=== PATIENT | female | born 1950 | race Two or more races ===

== ENCOUNTER 2016-03-11 18:11 | Emergency (ER) | payer MEDICAID ==
[~2016-03-11] VITALS: Ht 162.6 cm; Wt 99.8 kg
[2016-03-11 18:19] VITALS: BP 147/87
[2016-03-11] MEDS ORDERED: ALBU18HF2 IH (18:25)
[2016-03-11] MEDS ORDERED: LOVA40TA2 PO (18:25)
== END 2016-03-11 21:19 | disposition home or self-care (01) ==
LOC: ER 18:13
DX: S29.011A Strain of muscle and tendon of front wall of thorax, initial encounter (principal); J45.909 Unspecified asthma, uncomplicated; Z90.710 Acquired absence of both cervix and uterus; E78.00 Pure hypercholesterolemia, unspecified; Z88.0 Allergy status to penicillin; Z88.1 Allergy status to other antibiotic agents; W01.0XXA Fall on same level from slipping, tripping and stumbling without subsequent striking against object, initial encounter; Y93.89 Activity, other specified; Y92.89 Other specified places as the place of occurrence of the external cause; Y99.9 Unspecified external cause status
CPT/HCPCS: 71010; 99283; A4606; Z7610

== ENCOUNTER 2020-12-14 14:06 | Emergency (ER) | payer MEDICAID ==
[~2020-12-14] VITALS: Ht 157.5 cm; Wt 107.5 kg
[~2020-12-14 14:06] MED LIST: ALBU18HF2 IH; LOVA40TA2 PO
--- NOTE | 2020-12-14 14:16 | NUR ---
BIB SELF C/O CHEST PAIN AND SOB SINCE 12 NOON TODAY AFTER TAKING 2 CBD GUMMIES. PAIN IS SHARP RATED 8/10 IN MEDIASTINUM, NONRADIATING. PT ADMITS FEELING DIZZY, AGITATION, HEART RACING " IF ABOUT TO STOP," DRY MOUTH, HOT, AND EARS FULL IF GOING TO BURST. PT IS CITIZEN OF [place] SPEAKING, ACCOMPANIED BY DAUGHTER WHO IS TRANSLATING. ON MONITOR. HR 92 BP 150/92
--- NOTE | 2020-12-14 15:39 | NUR ---
RADIOLOGY AT BEDSIDE
[2020-12-14 15:40] LABS: BASOPHILS % (AUTO) 0.7 % (0.0-2.0); EOSINOPHILS % (AUTO) 0.7 % (0.0-6.0); HEMATOCRIT 32 % (33-45); HEMOGLOBIN 10.7 g/dL (11.5-14.8); LYMPHOCYTES # (AUTO) 0.5 K/uL (0.8-4.8); LYMPHOCYTES % (AUTO) 10.8 % (20.0-44.0); MEAN CORPUSCULAR HGB CONC 33 g/dl (31.0-36.0); MEAN CORPUSCULAR VOLUME 98 fL (82-100); MONOCYTES # (AUTO) 0.3 K/uL (0.1-1.30); NEUTROPHILS # (AUTO) 3.5 K/uL (1.8-8.9); NEUTROPHILS % (AUTO) 79.8 % (43.0-81.0); PLATELET COUNT (AUTO) 190 K/uL (150-450); RED BLOOD CELL COUNT(AUTO) 3.26 MIL/uL (4.0-5.2); WHITE BLOOD COUNT (AUTO) 4.4 K/uL (4.3-11.0)
--- NOTE | 2020-12-14 15:48 | NUR ---
EKG BEING DONE AT BEDSIDE
[2020-12-14 15:54] LABS: CALCIUM, SERUM 8.7 mg/dL (8.5-10.1); CARBON DIOXIDE 27 mmol/L (21-32); CHLORIDE 104 mmol/L (98-107); CREATININE 0.9 mg/dL (0.6-1.3); GLUCOSE 108 mg/dL (74-106); POTASSIUM 4.1 mmol/L (3.5-5.1); SODIUM SERUM 138 mmol/L (136-145); UREA NITROGEN, BLOOD 23 mg/dL (7-18)
[2020-12-14 16:54] VITALS: BP 141/79
--- NOTE | 2020-12-14 16:54 | NUR ---
Patient discharged to home in stable condition. Written and verbal after care instructions given. Patient verbalizes understanding of instruction.
--- NOTE | 2020-12-14 16:54 | NUR ---
IV removed. Catheter intact and site benign. Pressure and 4x4 applied to site. No bleeding noted.
== END 2020-12-14 16:56 | disposition home or self-care (01) ==
LOC: ER 14:11
DX: T40.711A Poisoning by cannabis, accidental (unintentional), initial encounter (principal); I10 Essential (primary) hypertension; J45.909 Unspecified asthma, uncomplicated; E78.00 Pure hypercholesterolemia, unspecified; Z98.890 Other specified postprocedural states; Z88.0 Allergy status to penicillin; Z88.1 Allergy status to other antibiotic agents; Z79.899 Other long term (current) drug therapy; Y92.89 Other specified places as the place of occurrence of the external cause
CPT/HCPCS: 36415; 71045-TC; 80048-TC; 84484-TC; 85025-TC